=== PATIENT | female | born 1970 | race Caucasian/White ===

== ENCOUNTER 2025-02-28 15:38 | Emergency (ER) | payer SELFPAY ==
[2025-02-28 15:40] VITALS: BP 104/80
[2025-02-28 16:08] LABS: % Basophils 1.5 % (0-2); % Eosinophils 0.8 % (0-6); % Immature Granulocytes 0.2 % (0-0.5); % Lymphocytes 37.9 % (20.5-51.1); % Monocytes 7.7 % (1.7-9.3); % Neutrophils 51.9 % (42.2-75.2); Absolute Basophils 0.1 10^3/uL (0-0.2); Absolute Lymphocytes 1.8 10^3/uL (1.2-3.4); Absolute Monocytes 0.4 10^3/uL (0.1-0.6); Absolute Neutrophils 2.5 10^3/uL (1.4-6.5); Hemoglobin 13.9 g/dL (12.0-16.0); Mean Corp Hgb Conc. 34.8 g/dL (33.0-37.0); Mean Platelet Volume 11.6 fL (7.4-10.4); Nucleated Red Blood Cells % 0 %; Platelet Count 102 10^3/uL (130-400); Red Blood Cell Count 4.35 10^6/uL (4.20-5.40); White Blood Cell Count 4.8 10^3/uL (4.8-10.8)
[2025-02-28 16:18] LABS: ALT (SGPT) 46 U/L (0-35); AST (SGOT) 70 U/L (14-36); Albumin 3.9 g/dl (3.5-5.0); Alkaline Phosphatase 116 U/L (38-126); Blood Urea Nitrogen 8 mg/dl (7-17); Calcium 9.1 mg/dl (8.4-10.2); Carbon Dioxide 29 mmol/L (22-30); Chloride 108 mmol/L (98-107); Glucose 80 mg/dl (70-99); Potassium 3.9 mmol/L (3.5-5.1); Sodium 141 mmol/L (135-145); Total Bilirubin 1.8 mg/dl (0.2-1.3); Total Protein 6.3 g/dl (6.3-8.2); eGFR > 60.00
--- NOTE | 2025-02-28 19:12 | ED.GENMED ---
History of Present Illness
General
Chief Complaint: Vaginal Bleeding
Source: patient
Exam Limitations: none
Time Seen by Provider: 02/28/25 17:26
Nursing documentation reviewed up to this point in time: agreed with
History of Present Illness
History of Present Illness:
Patient to ED with complaint of vaginal bleeding. States she believes it has been a year since her last period and thought she was post menapausal. Also notes that she is taking ibuprofen and antibiotic for suspected dental abscess. States she
unsure if these meds are making her bleed. Denies any abd. pain. Denies fever/chills, recent illness. Brought to ED by spouse for eval.
Past History
Past History
ED Past Medical History: None
ED Past Surgical History: None
Review of Systems
Review of Systems
Allergies reviewed?: Yes
All Other Systems: ROS reviewed and negative except as documented in HPI and ROS
Constitutional: Reports no symptoms
EENT: Reports no symptoms
Respiratory: Reports no symptoms
Cardiac: Reports no symptoms
ABD/GI: Reports no symptoms
: Reports bleeding (vaginal bleeding x 3 day)
Musculoskeletal: Reports no symptoms
Skin: Reports no symptoms
Neurological: Reports no symptoms
Psychiatric: Reports no symptoms
Phy Exam
General Physical Exam
General Presentation: well appearing and no apparent distress
General age: appears stated age
General Skin: warm and dry
General Habitus: normal
Gastrointestinal Exam
Gastrointestinal Exam: non tender, soft and other ( exam deferred for US)
Musculoskeletal Exam
Musculoskeletal Exam: full ROM
Skin Exam
Skin Exam: normal color, warm/dry and no rash
Psychiatric Exam
Psychiatric Exam: normal mood/affect
Course
Orders/Labs/Results
Orders:
Orders
02/28/25 15:53
Complete Blood Count/With Diff Urgent
Comprehensive Metabolic Panel Urgent
HCG, Serum Qualitative Screen Urgent
Comment: ADD ON
02/28/25 16:14
US Pelvis Only (non-obstetric) Urgent
Comment:
Reason For Exam: post men bleeding
02/28/25 19:15
Add On- LAB Urgent
Tests Added?: serum HCG
Abnormal Lab Results
02/28/25
15:53
MCH 32.0 H pg
(27.0-31.0)
Plt Count 102 L 10^3/uL
(130-400)
MPV 11.6 H fL
(7.4-10.4)
Chloride 108 H mmol/L
(98-107)
Creatinine 0.5 L mg/dL
(0.6-1.0)
Total Bilirubin 1.8 H mg/dl
(0.2-1.3)
AST 70 H U/L
(14-36)
ALT 46 H U/L
(0-35)
02/28/25 15:53
02/28/25 15:53
Vital Signs
Initial and Last Documented VS:
Initial Vital Signs
Temp Pulse Resp BP Pulse Ox
98 F 68 16 104/80 97
02/28/25 15:40 02/28/25 15:40 02/28/25 15:40 02/28/25 15:40 02/28/25 15:40
Last Documented Vital Signs
Temp Pulse Resp BP Pulse Ox
98 F 54 18 99/70 97
02/28/25 15:40 02/28/25 19:13 02/28/25 19:13 02/28/25 19:13 02/28/25 15:40
*Radiology
Radiology exam reviewed: radiology read reviewed
*Pulse Oximetry
Patient hypoxic: no
*Critical Care Note
Total Time (30-74mins, 75-104mins- exclusive of procedures): Not Applicable
Update Note
Update Note:
Patient to ED with complaint of vaginal bleeding. Thought she had completed a year without bleeding and was now considered post menopausal, but now not sure. US without concerning findings. Labs reviewed with her, no concerning findings. WIll
discharge home, follow up with [facility]. Given number for follow up. SHe was given instructions on s/s to return to ED and she is agreeable to plan
ED Attending Note
-
Portions of this chart may have been created with voice recognition software.� Occasional wrong word or��sound alike� substitutions may have occurred due to the inherent limitations of voice recognition software.
Discharge Plan
Departure
Patient Disposition: Home (Routine Discharge)
Date of Disposition: 02/28/25
Time of Disposition: 19:08
Patient with high blood pressure during this ER visit?: No
Condition: Good
Covid-19: Not Applicable
Discharge Problem:
Vaginal bleeding
Instructions: Heavy periods - ED discharge instructions
Referrals:
NONE,* [Family Provider, Internal Medicine]
Nelly Fine MD [Active, Gynecology] - Call in 1-3 days for appt
Interventions
Interventions:
*Risk Screen - Suicide Last Done: 02/28/25 15:45
*Neglect/Abuse Screening Last Done: 02/28/25 15:45
*Nursing Disposition Last Done: 02/28/25 19:16
ED-Female Genitourinary Assessment Last Done: 02/28/25 18:11
Discharge Date and Time
Discharge Date/Time: 02/28/25 19:17
Print Language: INDONESIAN
[2025-02-28 19:13] VITALS: BP 99/70
[2025-02-28 19:54] LABS: HCG, Serum Qualitative Screen Negative
== END 2025-02-28 19:17 | disposition home or self-care (01) ==
LOC: EMR 15:38
PROVIDERS: Emergency Medicine; EMERGENCY PHYSICIAN Emergency Medicine
DX: N93.9 Abnormal uterine and vaginal bleeding, unspecified (principal)
CPT/HCPCS: 99284; 76856; 80053; 84703; 85025